=== PATIENT | male | born 1960 | race Caucasian/White ===

== ENCOUNTER → 2017-05-02 | Outpatient (CLI) | payer OTHER ==
[2017-05-02 16:41] LABS: HEMATOCRIT 45.7 % (42-52); MEAN CELL VOLUME 90.1 fL (80-100); MEAN CORPUSCULAR HGB CONC 33.3 g/dl (32-36); MEAN PLATELET VOLUME 9.9 fL (7.4-10.4); PLATELET COUNT 333 K/uL (130-400); RED BLOOD COUNT 5.07 M/uL (4.7-6.1); WHITE BLOOD COUNT 8.61 K/uL (4.8-10.8)
[2017-05-02 17:25] LABS: ALT/SGPT 25 U/L (12-78); AST/SGOT 17 U/L (15-37); BLOOD UREA NITROGEN 18 mg/dl (7-18); BUN/CREATININE RATIO 15.3 (10-20); CARBON DIOXIDE 29 mmol/L (21-32); CHLORIDE 100 mmol/L (98-107); CREATININE 1.15 mg/dl (0.60-1.40); GLUCOSE 85 mg/dl (70-99); POTASSIUM 3.5 mmol/L (3.5-5.1); SODIUM 138 mmol/L (136-145)
[2017-05-02 17:28] LABS: ALB/GLOB RATIO 0.6 (0.9-2); ALKALINE PHOSPHATASE 80 U/L (45-117)
--- NOTE | 2017-05-03 16:00 | ECHOCARDIOGRAM REPORT ---
*NOTICE TO RECEIVING LIBERTARIAN AGENCY This information is strictly Confidential and protected under [place] law. [place] law prohibits you from making any further disclosure of this information unless further disclosure is expressly permitted by the written consent of the person to whom it pertains or is authorized by law. A general authorization for the release of medical or other information is not sufficient for this purpose. Hospital accepts no responsibility if the information is made available to any other person, INCLUDING THE PATIENT. Interpretation Summary * Name: ELOISE BARGER Study Date: 05/02/2017 03:17 PM BP: 152/103 mmHg * Patient Location: [facility] HR: 81 * : 1960 (M/d/yyyy) Gender: Male Height: 71 in * Age: 57 yrs Ethnicity: CA Weight: 370 lb * Ordering Physician: Reji Chavez * Referring Physician: Reji Chavez D.O. * Performed By: Ema Heard RDCS * * Reason For Study: LEG SWELLING * BSA: 2.7 m2 * The study was technically difficult. * -- Conclusions -- * No regional wall motion abnormalities noted. * There is mild concentric left ventricular hypertrophy. * The LV Ejection Fraction = 50-55%. * Grade I diastolic dysfunction, (abnormal relaxation pattern). * Aortic valve sclerosis mild, without significant aortic valvular stenosis. * The tricuspid regurgitation jet is not sufficient to allow for calculation of the pulmonary artery systolic pressure. Procedure Details * A complete two-dimensional transthoracic echocardiogram was performed (2D, M-mode, Doppler and color flow Doppler). * The study was technically difficult. * There were technical limitations due to patient'sbody habitus * A contrast injection of Definity was performed to improve assessment of LV function. * Contrast was injected into an intravenous site in the right arm. * One vial of Definity ultrasound contrast was diluted in normal saline to a total volume of 10 ml. A total of '3' ml of solution was administered during imaging. * Lot # [id number] of Definity utilized for procedure. * Expiration date 04/26. * The attending nurse who injected the contrast agent was SAIDA HOGAN RN. Left Ventricle * The left ventricle is normal in size. * There is mild concentric left ventricular hypertrophy. * Left ventricular systolic function is normal. * Ejection Fraction = 50-55%. * No regional wall motion abnormalities noted. Right Ventricle * The right ventricle is normal in size and function. Atria * The left atrial size is normal. * Right atrial size is normal. * There is no evidence of atrial septal defect, but resolution does not allow assessment for a patent foramen ovale. Mitral Valve * The mitral valve is normal. * There is no mitral valve stenosis. * Significant mitral regurgitation is absent. Tricuspid Valve * The tricuspid valve is normal. * There is no tricuspid stenosis. * Significant tricuspid regurgitation is absent. * The tricuspid regurgitation jet is not sufficient to allow for calculation of the pulmonary artery systolic pressure. Aortic Valve * The aortic valve is trileaflet. * Aortic valve sclerosis mild, without significant aortic valvular stenosis. * Aortic stenosis is absent. * There is no significant aortic regurgitation. Pulmonic Valve * The pulmonary valve is not well seen, but the Doppler examination is normal without significant regurgitation or stenosis. Great Vessels * The aortic root and proximal ascending aorta are normal sized. Pericardium/Pleural * There is no pericardial effusion. Great Vessels * Normal inferior vena cava diameter and respiratory variation suggests normal central venous pressure. Left Ventricular Diastolic Function * Grade I diastolic dysfunction, (abnormal relaxation pattern). MMode 2D Measurements and Calculations IVSd 1.4 cm IVSs 1.6 cm LVIDd 5.7 cm LVIDs 4.1 cm LVPWd 1.2 cm LVPWs 1.9 cm IVS/LVPW 1.1 FS 27.2 % EDV(Teich) 159.9 ml ESV(Teich) 76.3 ml EF(Teich) 52.3 % EDV(cubed) 184.9 ml ESV(cubed) 71.4 ml EF(cubed) 61.4 % % IVS thick 16.2 % % LVPW thick 59.0 % LV mass(C)d 315.0 grams LV mass(C)dI 115.0 grams/m\S\2 LV mass(C)s 312.0 grams LV mass(C)sI 113.9 grams/m\S\2 SV(Teich) 83.6 ml SI(Teich) 30.5 ml/m\S\2 SV(cubed) 113.5 ml SI(cubed) 41.5 ml/m\S\2 asc Aorta Diam 3.2 cm LVOT diam 2.2 cm LVOT area 3.6 cm\S\2 LVAd ap4 50.1 cm\S\2 LVLd ap4 10.2 cm EDV(MOD-sp4) 200.0 ml EDV(sp4-el) 209.1 ml LVAs ap4 29.9 cm\S\2 LVLs ap4 8.1 cm ESV(MOD-sp4) 96.1 ml ESV(sp4-el) 94.3 ml EF(MOD-sp4) 51.9 % EF(sp4-el) 54.9 % LVAd ap2 46.7 cm\S\2 LVLd ap2 10.4 cm EDV(MOD-sp2) 170.4 ml EDV(sp2-el) 177.4 ml LVAs ap2 28.7 cm\S\2 LVLs ap2 9.0 cm ESV(MOD-sp2) 73.9 ml ESV(sp2-el) 77.7 ml EF(MOD-sp2) 56.6 % EF(sp2-el) 56.2 % LVLd %diff 2.6 % EDV(MOD-bp) 184.8 ml LVLs %diff 10.4 % ESV(MOD-bp) 86.7 ml EF(MOD-bp) 53.1 % SV(MOD-sp4) 103.8 ml SI(MOD-sp4) 37.9 ml/m\S\2 SV(MOD-sp2) 96.5 ml SI(MOD-sp2) 35.2 ml/m\S\2 SV(MOD-bp) 98.1 ml SI(MOD-bp) 35.8 ml/m\S\2 SV(sp4-el) 114.9 ml SI(sp4-el) 41.9 ml/m\S\2 SV(sp2-el) 99.7 ml SI(sp2-el) 36.4 ml/m\S\2 Doppler Measurements and Calculations MV E max marcell 80.2 cm/sec MV A max marcell 90.8 cm/sec MV E/A 0.88 MV dec time 0.18 sec Ao V2 max 113.9 cm/sec Ao max PG 5.2 mmHg Ao max PG (full) 3.4 mmHg PEDRO(V,A) 2.2 cm\S\2 PEDRO(V,D) 2.2 cm\S\2 LV V1 max PG 1.8 mmHg LV V1 max 67.6 cm/sec PA V2 max 78.7 cm/sec PA max PG 2.5 mmHg
== END | disposition home or self-care (01) ==
LOC: C.CPL 15:02
PROVIDERS: ATTEND Internal Medicine
DX: M79.89 Other specified soft tissue disorders (principal); N18.3 Chronic kidney disease, stage 3 (moderate); I12.9 Hypertensive chronic kidney disease with stage 1 through stage 4 chronic kidney disease, or unspecified chronic kidney disease

== ENCOUNTER → 2018-03-02 | Outpatient (CLI) | payer OTHER ==
[2018-03-02 19:19] LABS: HEMATOCRIT 47.6 % (42-52); HEMOGLOBIN 15.9 g/dL (14.0-18.0); MEAN CELL VOLUME 90.7 fL (80-100); MEAN CORPUSCULAR HEMOGLOBIN 30.3 pg (25-34); MEAN CORPUSCULAR HGB CONC 33.4 g/dl (32-36); MEAN PLATELET VOLUME 10.1 fL (7.4-10.4); PLATELET COUNT 323 K/uL (130-400); RED CELL DISTRIBUTION WIDTH CV 14.1 % (11.5-14.5); WHITE BLOOD COUNT 10.55 K/uL (4.8-10.8)
[2018-03-02 19:54] LABS: ALBUMIN 3.4 gm/dl (3.4-5.0); ALKALINE PHOSPHATASE 82 U/L (45-117); ALT/SGPT 21 U/L (12-78); AST/SGOT 15 U/L (15-37); BLOOD UREA NITROGEN 32 mg/dl (7-18); CALCIUM 8.9 mg/dl (8.5-10.1); CARBON DIOXIDE 26 mmol/L (21-32); CREATININE 1.85 mg/dl (0.60-1.40); GLUCOSE 90 mg/dl (70-99); PHOSPHORUS 3.2 mg/dl (2.5-4.9); POTASSIUM 3.7 mmol/L (3.5-5.1); SODIUM 135 mmol/L (136-145); TOTAL PROTEIN 9.1 gm/dl (6.4-8.2)
== END | disposition home or self-care (01) ==
LOC: C.LAB 18:39
PROVIDERS: ATTEND Internal Medicine
DX: N18.3 Chronic kidney disease, stage 3 (moderate) (principal); I12.9 Hypertensive chronic kidney disease with stage 1 through stage 4 chronic kidney disease, or unspecified chronic kidney disease